=== PATIENT | male | born 1995 | race Hispanic/Latino ===

== ENCOUNTER 2024-12-08 06:06 | Emergency (ER) | payer SELFPAY ==
[~2024-12-08] VITALS: Ht 182.9 cm; Wt 108.0 kg
[2024-12-08 06:11] VITALS: PULSE 95; RESP 18; TEMP 97.7; O2SAT 100
[2024-12-08] MEDS: LIDOCAINE 4% PATCH TP STA (06:31)
[2024-12-08] MEDS: KETOROLAC TROMETHAMINE 30 MG/ML VIAL IM STA (06:31)
[2024-12-08] MEDS: ACETAMINOPHEN 325 MG TAB PO ONE (06:32)
[2024-12-08] MEDS ORDERED: NAPROXEN250 MG PO (06:32)
[2024-12-08] MEDS: DEXAMETHASONE 4 MG TAB PO STA (06:32)
== END 2024-12-08 06:58 | disposition home or self-care (01) ==
LOC: ER 06:23
DX: M54.50 Low back pain, unspecified (principal); Y93.B9 Activity, other involving muscle strengthening exercises
CPT/HCPCS: 99282; J1885; J8540